=== PATIENT | female | born 1965 | race Caucasian/White ===

== ENCOUNTER 2021-07-02 10:06 | Emergency (ER) | payer SELFPAY ==
--- NOTE | 2021-07-02 10:42 | EDM.PDOC ---
ED HPI GENERAL MEDICAL PROBLEM - General Chief Complaint: Respiratory Problem Stated Complaint: SINUS PAIN SOB Time Seen by Provider: 07/02/21 10:12 Source of Information: Reports: Patient History Limitations: Reports: No Limitations - History of Present Illness INITIAL COMMENTS - FREE TEXT/NARRATIVE: Patient is a 56-year-old female who presents today for pressure in her face for the past 10 days. Patient states she feels he has a sinus infection. Now spread down to her chest has had increased cough as well that has been productive. She also reports some chest tightness but denies any chest pain. Nothing makes the tightness worse. That she still feels his breathing is normal. She denies any fever chills any lower extremity swelling. Patient also reports some nasal discharge and drainage. - Related Data Allergies Allergy/AdvReac Type Severity Reaction Status Date / Time No Known Allergies Allergy Verified 07/02/21 10:29 Home Meds: Home Meds Amoxicillin/Clavulanate K [Augmentin 875-125 MG] 1 tab PO BID 7 Days #14 tablet 07/02/21 [Rx] ED ROS GENERAL - Review of Systems Review Of Systems: See Below Constitutional: Reports: No Symptoms HEENT: Reports: Rhinitis Respiratory: Reports: No Symptoms Cardiovascular: Reports: No Symptoms Endocrine: Reports: No Symptoms GI/Abdominal: Reports: No Symptoms : Reports: No Symptoms Musculoskeletal: Reports: No Symptoms Skin: Reports: No Symptoms Neurological: Reports: No Symptoms Psychiatric: Reports: No Symptoms Hematologic/Lymphatic: Reports: No Symptoms Immunologic: Reports: No Symptoms ED EXAM, GENERAL - Physical Exam Exam: See Below Exam Limited By: No Limitations General Appearance: Alert, WD/WN, No Apparent Distress Eye Exam: Bilateral Eye: EOMI, PERRL Head: Sinus Tenderness Respiratory/Chest: No Respiratory Distress, Lungs Clear, Normal Breath Sounds Cardiovascular: Normal Peripheral Pulses, Regular Rate, Rhythm, No Edema GI/Abdominal: Normal Bowel Sounds, Soft, Non-Tender Extremities: Normal Inspection, Normal Range of Motion Neurological: Alert, Oriented, Normal Cognition, Normal Gait #1 Interpretation EKG Date: 07/02/21 Time: 10:46 Rhythm: NSR Rate (Beats/Min): 69 ST-T: Normal Course - Vital Signs Last Recorded V/S: Last Vital Signs Temp 98.4 F 07/02/21 10:20 Pulse 72 07/02/21 10:20 Resp 18 07/02/21 10:20 BP 115/68 07/02/21 10:20 Pulse Ox 998 H 07/02/21 10:20 - Re-Assessments/Exams Free Text/Narrative Re-Assessment/Exam: 07/02/21 12:05 Patient again denies any labs to rule out any MIs EKG was reviewed patient will be discharged antibiotics for sinusitis. Departure - Departure Time of Disposition: 12:05 Disposition: Home, Self-Care 01 Condition: Good Clinical Impression: Sinusitis - Discharge Information *PRESCRIPTION DRUG MONITORING PROGRAM REVIEWED*: Not Applicable *COPY OF PRESCRIPTION DRUG MONITORING REPORT IN PATIENT [place]: Not Applicable Prescriptions: Amoxicillin/Clavulanate K [Augmentin 875-125 MG] 1 tab PO BID 7 Days #14 tablet Instructions: Sinusitis, Adult, [id number] Referrals: PCP,None [Primary Care Provider] - Forms: ED Department Discharge Additional Instructions: The following information is given to patients seen in the emergency department who are being discharged to home. This information is to outline your options for follow-up care. We provide all patients seen in our emergency department with a follow-up referral. The need for follow-up, as well as the timing and circumstances, are variable depending upon the specifics of your emergency department visit. If you don't have a primary care physician on staff, we will provide you with a referral. We always advise you to contact your personal physician following an emergency department visit to inform them of the circumstance of the visit and for follow-up with them and/or the need for any referrals to a consulting specialist. The emergency department will also refer you to a specialist when appropriate. This referral assures that you have the opportunity for follow-up care with a specialist. All of these measure are taken in an effort to provide you with optimal care, which includes your follow-up. Under all circumstances we always encourage you to contact your private physician who remains a resource for coordinating your care. When calling for follow-up care, please make the office aware that this follow-up is from your recent emergency room visit. If for any reason you are refused follow-up, please contact the [facility] Emergency Department at and asked to speak to the emergency department charge nurse. Please follow up with your primary care physician. If you do not have a primary care physician, see below: [facility] [address] [place] [address] My [facility] [address] [place] [address] You are seen today for possible sinus infection. You had some chest tightness we did EKG you did not want to do labs this time we recommend you continue have any chest tightness or pain please return to your hospital to for work-up or you can follow-up to primary care physician. We sent antibiotics to the pharmacy to help out your sinus infection if you have any question concerns please return to the ED. Sepsis Event Note (ED) - Focused Exam Vital Signs: Vital Signs Temp Pulse Resp BP Pulse Ox 07/02/21 10:20 98.4 F 72 18 115/68 998 H - Assessment/Plan Plan: Patient is a 56-year-old female who presents today for possible sinus infection. She also reported some chest tightness. We would like to have done labs to patient is refusing we did convince patient to let us do an EKG for her. If EKG is normal patient will be discharged antibiotics.
--- NOTE | 2021-07-02 12:09 | CR ---
INDICATION: Cough and chest tightness. COMPARISON: None. TECHNIQUE: Single AP portable view of the chest. FINDINGS: There is adequate inflation of the lungs. No focal consolidation, pneumothorax or effusion. Cardiomediastinal silhouette is within normal limits. There are no acute osseous findings. IMPRESSION: No acute cardiopulmonary findings. Dictated by Laurent Holguin MD @ 07/02/2021 12:08:57 PM Dictated by: Laurent Holguin MD @ 07/02/2021 12:09:03 (Electronically Signed)
== END 2021-07-02 12:30 | disposition home or self-care (01) ==
LOC: MW.ED 10:06
DX: J32.9 Chronic sinusitis, unspecified (principal)
CPT/HCPCS: 71045; 71045-26; 93005; 99283-25

== ENCOUNTER 2023-01-29 22:36 | Emergency (ER) | payer BC ==
[2023-01-29] MEDS ORDERED: Sodium Chloride 0.9% 10 ML Syringe FLUSH PRN (22:43)
[2023-01-29] MEDS ORDERED: Sodium Chloride 0.9% 2.5 ML Syringe FLUSH PRN (22:43)
[2023-01-29 23:22] LABS: CARBON DIOXIDE,CO2 28.7 mmol/L (21.0-32.0); POTASSIUM,K 3.7 mmol/L (3.5-5.1)
[2023-01-30] MEDS ORDERED: Ketorolac 30 MG/ML SDV IVPUSH ONE (00:40)
[2023-01-30] MEDS ORDERED: Alum Hydro/Mag Hydro/Simeth XS 15 ML, Lidocaine 2% 5 ML PO ONE ×2 (00:40)
[2023-01-30 01:30] LABS: LIPASE 148 U/L (73-393)
== END 2023-01-30 01:56 | disposition home or self-care (01) ==
LOC: MW.ED 22:36
DX: R07.89 Other chest pain (principal); Z86.16 Personal history of COVID-19
CPT/HCPCS: 36415; 71045; 80053; 80307; 83690; 84484; 85025; 85379; 93005; 96374; 99285; A9270; J1885; J3490

== ENCOUNTER 2023-10-20 12:50 | Emergency (ER) | payer BC ==
[2023-10-20] MEDS ORDERED: Ketorolac 30 MG/ML SDV IM ONE (13:23)
[2023-10-20 14:00] LABS: CORONAVIRUS COVID-19 NAA POSITIVE (NEGATIVE); INFLUENZA A NAA NEGATIVE (NEGATIVE); INFLUENZA B NAA NEGATIVE (NEGATIVE)
== END 2023-10-20 13:55 | disposition home or self-care (01) ==
LOC: MW.ED 12:50
DX: J11.1 Influenza due to unidentified influenza virus with other respiratory manifestations (principal); Z20.822 Contact with and (suspected) exposure to COVID-19; Z86.16 Personal history of COVID-19; Z79.899 Other long term (current) drug therapy
CPT/HCPCS: 0240U; 96372; 99284; J1885; 99283

== ENCOUNTER 2024-10-05 15:25 | Emergency (ER) | payer BC ==
[2024-10-05 16:06] LABS: BASOPHILS ABSOLUTE AUTO 0.07 K/uL (0.00-0.20); EOSINOPHILS ABSOLUTE AUTO 0.44 K/uL (0.00-0.45); EOSINOPHILS PERCENT AUTO 6.6 % (0.0-6.0); HEMATOCRIT 41.5 % (37.0-47.0); HEMOGLOBIN 14.3 g/dL (12.0-16.0); IMMATURE GRAN ABSOLUTE AUTO 0.02 K/uL (0.00-0.05); IMMATURE GRAN PERCENT AUTO 0.3 % (0.0-0.4); LYMPHOCYTES PERCENT AUTO 28.3 % (24.0-44.0); MEAN CORPUSCULAR HGB CONC 34.5 g/dL (32.0-36.0); MEAN PLATELET VOLUME 9.4 fL (9.4-12.3); MONOCYTES ABSOLUTE AUTO 0.42 K/uL (0.00-0.80); MONOCYTES PERCENT AUTO 6.3 % (0.0-8.0); NEUTROPHILS ABSOLUTE AUTO 3.86 K/uL (1.80-7.70); NEUTROPHILS PERCENT AUTO 57.5 % (41.0-71.0); PLATELET COUNT,PLT 225 K/uL (150-400); RED BLOOD CELL COUNT 4.77 M/uL (4.10-5.30); WHITE BLOOD CELL COUNT,WBC 6.71 K/uL (3.9-11.3)
[2024-10-05 16:36] LABS: A/G RATIO 1.2 (0.9-1.6); ALBUMIN 3.6 g/dL (3.4-5.0); BILIRUBIN TOTAL 0.3 mg/dL (0.2-1.0); CALCIUM 8.8 mg/dL (8.5-10.1); CARBON DIOXIDE,CO2 26.8 mmol/L (21.0-32.0); CREATININE 0.7 mg/dL (0.6-1.0); EST CRCL DRUG DOSING (CG) 73.8 mL/min; POTASSIUM,K 3.5 mmol/L (3.5-5.1); PROTEIN TOTAL,TP 6.5 g/dL (6.4-8.2)
== END 2024-10-05 17:52 | disposition home or self-care (01) ==
LOC: MW.ED 15:25
DX: R07.2 Precordial pain (principal); R05.1 Acute cough; Z90.49 Acquired absence of other specified parts of digestive tract; Z75.8 Other problems related to medical facilities and other health care
CPT/HCPCS: 36415; 71046; 71046-26; 80053; 83690; 84484; 85025; 87428-QW; 93005; 93010; 99284; 99285

== ENCOUNTER 2025-02-20 18:07 | Emergency (ER) | payer BC ==
[2025-02-20] MEDS: Orphenadrine 60 MG/2 ML Inj IM ONE (21:01)
[2025-02-20] MEDS: Ketorolac 30 MG/ML SDV IM ONE (21:01)
== END 2025-02-20 21:07 | disposition home or self-care (01) ==
LOC: MW.ED 18:07
DX: M54.32 Sciatica, left side (principal); Z75.3 Unavailability and inaccessibility of health-care facilities; F17.210 Nicotine dependence, cigarettes, uncomplicated
CPT/HCPCS: 96372; 99283; J1885; J2360; 99282

== ENCOUNTER 2025-02-22 08:05 | Emergency (ER) | payer BC ==
[2025-02-22] MEDS: Lidocaine 4% Patch TOP ONE (08:29)
[2025-02-22] MEDS: Dexamethasone 4 MG Tab PO ONE (08:29)
[2025-02-22] MEDS: Acetaminophen 500 MG Tab PO ONE (08:29)
[2025-02-22] MEDS: Ketorolac 30 MG/ML SDV IM ONE (08:30)
[2025-02-22] MEDS: Orphenadrine 60 MG/2 ML Inj IM PRN (08:31)
[2025-02-22 08:56] LABS: APPEARANCE,URINE CLEAR; BILIRUBIN,URINE NEGATIVE (NEGATIVE); COLOR,URINE STRAW; GLUCOSE,URINE NEGATIVE (NEGATIVE); KETONES,URINE NEGATIVE (NEGATIVE); LEUKOCYTE ESTERASE,URINE NEGATIVE (NEGATIVE); NITRITE,URINE NEGATIVE (NEGATIVE); OCCULT BLOOD,URINE NEGATIVE (NEGATIVE); PROTEIN,URINE NEGATIVE (NEGATIVE); UROBILINOGEN,URINE 0.2 EU/dL (<2.0)
== END 2025-02-22 09:50 | disposition home or self-care (01) ==
LOC: MW.ED 08:05
DX: S39.012A Strain of muscle, fascia and tendon of lower back, initial encounter (principal); M51.360 Other intervertebral disc degeneration, lumbar region with discogenic back pain only; M51.16 Intervertebral disc disorders with radiculopathy, lumbar region; Z90.49 Acquired absence of other specified parts of digestive tract; Z79.899 Other long term (current) drug therapy; X58.XXXA Exposure to other specified factors, initial encounter; Y99.0 Civilian activity done for income or pay
CPT/HCPCS: 72131; 81003; 96372; 99284; A9270; J1885; J2360; J8540; 99283

== ENCOUNTER 2025-09-11 01:03 | Emergency (ER) | payer BC ==
[2025-09-11] MEDS: Acetaminophen/HYDROcodone 325-10 MG Tab PO ONE (01:53)
== END 2025-09-11 04:03 | disposition home or self-care (01) ==
LOC: MW.ED 01:03
DX: I82.812 Embolism and thrombosis of superficial veins of left lower extremity (principal); F17.200 Nicotine dependence, unspecified, uncomplicated; Z90.49 Acquired absence of other specified parts of digestive tract; Z75.3 Unavailability and inaccessibility of health-care facilities
CPT/HCPCS: 93971; 99283; A9270